=== PATIENT | female | born 1955 | race Two or more races ===

== ENCOUNTER 2025-01-10 19:28 | Inpatient (IN) | payer MEDICARE ==
[~2025-01-10] VITALS: Ht 167.6 cm; Wt 83.5 kg
[2025-01-10 21:55] VITALS: BP 133/69
[2025-01-10] MEDS ORDERED: MAGNESIUM HYDROXIDE 30 ML LIQUID UDC PO PRN (23:30)
[2025-01-10] MEDS ORDERED: MAG HYDROX/AL HYDROX/SIMETH 30 ML LIQUID UDC PO PRN (23:30)
[2025-01-10] MEDS ORDERED: ACETAMINOPHEN 325 MG TABLET PO PRN (23:30)
[2025-01-10] MEDS ORDERED: TEMAZEPAM 7.5 MG CAPSULE PO PRN ×2 (23:30)
[2025-01-10] MEDS ORDERED: LORAZEPAM 1 MG TABLET PO PRN (23:30)
[2025-01-10 23:55] VITALS: BP 157/74; TEMP 97.7; O2SAT 96
[2025-01-11] MEDS ORDERED: AMLO-212 PO (00:32)
[2025-01-11] MEDS ORDERED: RAME8TAB15 PO (00:32)
[2025-01-11] MEDS ORDERED: LURA20TA PO (00:32)
[2025-01-11] MEDS ORDERED: ATOR10TA PO (00:32)
[2025-01-11] MEDS ORDERED: FURO20TA4 PO (00:32)
[2025-01-11] MEDS ORDERED: GABA300C PO (00:32)
[2025-01-11] MEDS ORDERED: DULO20CA PO (00:32)
[2025-01-11] MEDS ORDERED: LEVO50TA8 PO (00:32)
[2025-01-11] MEDS ORDERED: PROP10TA10 PO (00:32)
[2025-01-11] MEDS ORDERED: HYDR-3895 PO (00:32)
[2025-01-11] MEDS ORDERED: TOPI50TA PO (00:32)
[2025-01-11] MEDS ORDERED: DULO60CA45 PO (00:32)
[2025-01-11] MEDS ORDERED: TRAZ-182 PO (00:32)
[2025-01-11] MEDS ORDERED: ACET1TAB23 PO (00:35)
[2025-01-11] MEDS ORDERED: ACETAMINOPHEN/CODEINE 300-30 MG TABLET PO PRN (07:45)
[2025-01-11 07:57] VITALS: BP 118/80; TEMP 98.7; O2SAT 91
[2025-01-11] MEDS ORDERED: TOPIRAMATE 50 MG PO SCH (09:00)
[2025-01-11] MEDS: GABAPENTIN 300 MG CAPSULE PO SCH (09:36)
[2025-01-11] MEDS: AMLODIPINE 5 MG TABLET PO SCH (09:37)
[2025-01-11] MEDS: TOPIRAMATE 25 MG TABLET PO SCH (09:47)
[2025-01-11] MEDS: PROPRANOLOL HCL 10 MG TABLET PO SCH (09:48)
[2025-01-11] MEDS: LEVOTHYROXINE SODIUM 50 MCG TABLET PO SCH (09:48)
[2025-01-11] MEDS: QUETIAPINE FUMARATE 25 MG TABLET PO SCH (10:17)
[2025-01-11] MEDS: ENSURE ENLIVE (VAN) 240 ML LIQUID PO SCH (13:05)
[2025-01-11 16:06] VITALS: BP 142/70; TEMP 98.7; O2SAT 93
[2025-01-11 19:58] VITALS: BP 177/87; TEMP 98.5; O2SAT 98
[2025-01-11] MEDS: TRAZODONE 50 MG TABLET PO SCH (20:29)
[2025-01-11] MEDS: ATORVASTATIN 10 MG TABLET PO SCH (20:29)
[2025-01-11 22:00] VITALS: BP 146/74
[2025-01-11] MEDS: LORAZEPAM 1 MG TABLET PO PRN (23:22)
[2025-01-12] MEDS: TEMAZEPAM 15 MG CAPSULE PO PRN (02:12)
[2025-01-12 08:48] LABS: PLATELET COUNT (AUTO) 300 K/uL (179-408); RED BLOOD CELL COUNT(AUTO) 4.60 MIL/uL (3.63-4.92); RED CELL DISTRIBUTION WIDTH 13.2 % (12.3-17.7); WHITE BLOOD COUNT (AUTO) 6.7 K/uL (3.8-11.8)
[2025-01-12 09:16] VITALS: BP 152/79; TEMP 98.2; O2SAT 91
[2025-01-12 09:22] LABS: SODIUM SERUM 142.0 mmol/L (136-145)
[2025-01-12 09:23] LABS: CREATININE 1.1 mg/dL (0.6-1.3); UREA NITROGEN, BLOOD 23.0 mg/dL (7-18)
[2025-01-12 16:36] VITALS: BP 131/70; TEMP 97.9; O2SAT 94
[2025-01-12 19:54] VITALS: BP 135/63; TEMP 98.3; O2SAT 91
[2025-01-13 08:26] VITALS: BP 136/77; TEMP 98.2; O2SAT 96
[2025-01-13 15:08] VITALS: BP 132/71; TEMP 98.2; O2SAT 96
[2025-01-13 19:44] VITALS: BP 112/52; TEMP 98.2; O2SAT 95
[2025-01-13] MEDS: QUETIAPINE FUMARATE 25 MG TABLET PO SCH (20:19)
[2025-01-14 08:10] VITALS: BP 126/74; TEMP 98.2; O2SAT 96
[2025-01-14 16:27] VITALS: BP 122/75; TEMP 98.2; O2SAT 96
[2025-01-14 19:48] VITALS: BP 124/64; TEMP 98.2; O2SAT 94
[2025-01-15 07:54] VITALS: BP 152/76; TEMP 97.9; O2SAT 95
[2025-01-15 16:07] VITALS: BP 133/66; TEMP 98.4; O2SAT 95
[2025-01-15 19:40] VITALS: BP 146/66; TEMP 98.4; O2SAT 94
[2025-01-16 07:30] VITALS: BP 141/77; TEMP 97.6; O2SAT 97
[2025-01-16] MEDS: FUROSEMIDE 20 MG TABLET PO PRN (08:02)
[2025-01-16 15:59] VITALS: BP 130/71; TEMP 97.8; O2SAT 97
[2025-01-16 20:00] VITALS: BP 144/76; TEMP 98.1; O2SAT 94
[2025-01-17 08:52] VITALS: BP 130/79; TEMP 98.5; O2SAT 96
[2025-01-17] MEDS: QUETIAPINE FUMARATE 25 MG TABLET PO SCH (09:08)
[2025-01-17 16:15] VITALS: BP 122/61; TEMP 97.6; O2SAT 95
[2025-01-17 19:50] VITALS: BP 128/76; TEMP 98.1; O2SAT 96
[2025-01-18 09:58] VITALS: BP 151/69; TEMP 98; O2SAT 98
[2025-01-18 15:41] VITALS: BP 126/58; TEMP 98; O2SAT 96
[2025-01-18] MEDS: TRAZODONE 50 MG TABLET PO SCH (21:01)
[2025-01-18 21:33] VITALS: BP 123/55; TEMP 97.7; O2SAT 94
[2025-01-19 07:54] VITALS: BP 135/73; TEMP 98; O2SAT 97
[2025-01-19 16:03] VITALS: BP 154/75; TEMP 98.1; O2SAT 98
[2025-01-19 20:44] VITALS: BP 137/51; TEMP 97.4; O2SAT 95
[2025-01-20 09:00] VITALS: BP 136/62; TEMP 98; O2SAT 98
[2025-01-20 15:54] VITALS: BP 138/69; TEMP 98; O2SAT 98
[2025-01-20 20:21] VITALS: BP 124/69; TEMP 97.6; O2SAT 97
[2025-01-21 08:38] VITALS: BP 154/73; TEMP 98; O2SAT 98
[2025-01-21 16:10] VITALS: BP 138/76; TEMP 97.6; O2SAT 97
[2025-01-21 20:35] VITALS: BP 137/72; TEMP 97.6; O2SAT 97
[2025-01-22 08:39] VITALS: BP 170/77; TEMP 98; O2SAT 98
[2025-01-22 09:40] VITALS: BP 156/82; O2SAT 98
[2025-01-22 16:23] VITALS: BP 133/76; TEMP 97.6; O2SAT 97
[2025-01-22 20:13] VITALS: BP 141/76; TEMP 97.8; O2SAT 96
[2025-01-22] MEDS: QUETIAPINE FUMARATE 25 MG TABLET PO SCH (20:28)
[2025-01-23 08:18] VITALS: BP 147/76; TEMP 98; O2SAT 98
[2025-01-23 09:12] VITALS: BP 147/76
== END 2025-01-23 15:15 | DRG 885 ==
LOC: ER 19:31 → GPS 22:30
PROVIDERS: ADMIT Psychiatry & Neurology Psychiatry; ATTEND Internal Medicine
DX: F29 Unspecified psychosis not due to a substance or known physiological condition (principal); F41.1 Generalized anxiety disorder; G40.909 Epilepsy, unspecified, not intractable, without status epilepticus; E78.5 Hyperlipidemia, unspecified; E03.9 Hypothyroidism, unspecified; Z79.890 Hormone replacement therapy; Z79.899 Other long term (current) drug therapy; F94.0 Selective mutism; I10 Essential (primary) hypertension; Z85.42 Personal history of malignant neoplasm of other parts of uterus
CPT/HCPCS: 36415; 71045; 85025